=== PATIENT | female | born 1995 | race Two or more races ===

== ENCOUNTER 2023-11-21 01:49 | Emergency (ER) | payer OTHER ==
[~2023-11-21] VITALS: Ht 162.6 cm; Wt 74.4 kg
[2023-11-21 04:02] LABS: URINE APPEARANCE Turbid; URINE BILIRRUBIN Small (NEGATIVE); URINE BLOOD Small; URINE COLOR Red; URINE GLUCOSE Negative (NEGATIVE); URINE LEUKOCYTE Large; URINE NITRATE Positive
[2023-11-21 04:04] LABS: HEMATOCRIT 37.2 % (36.0-45.00); HEMOGLOBIN 12.7 g/dL (12.0-15.00); MEAN CELL VOLUME 92.8 fL (80.00-100.00); MEAN CORPUSCULAR HEMOGLOBIN 31.7 pg (27.00-32.0); MEAN CORPUSCULAR HGB CONC 34.2 g/dl (32.0-36.0); PLATELET COUNT 337 K/uL (150-450); RED BLOOD COUNT 4.01 M/uL (4.00-6.00); RED CELL DISTRIBUTION WIDTH 12.8 % (11.5-14.5)
[2023-11-21 04:06] LABS: URINE BACTERIA 301.1 uL (0.0-1933); URINE EPITHELIAL CELLS 6.9 uL (0.0-38.8); URINE RBC 2807.6 uL (0.0-20.8); URINE WBC 3247.9 uL (0.0-23.2)
[2023-11-21 04:13] LABS: URINE PROTEIN 100 (NEGATIVE)
[2023-11-21 04:45] LABS: CALCIUM 9.3 mg/dL (8.5-10.1); CREATININE SERUM 0.76 mg/dL (0.55-1.02); GFR 91.99; POTASSIUM 3.01 mEq/L (3.5-5.1)
== END 2023-11-21 06:41 | disposition home or self-care (01) ==
LOC: ER 01:50
DX: N30.90 Cystitis, unspecified without hematuria (principal); Z88.8 Allergy status to other drugs, medicaments and biological substances
CPT/HCPCS: 96365; 99283; J0690; J0744; J1885